=== PATIENT | female | born 1995 ===

== ENCOUNTER 2021-11-03 09:19 | Outpatient (CLI) | payer OTHER | END 2021-11-03 10:12 | disposition home or self-care (01) | LOC: PRENATAL 09:19 | PROVIDERS: ATTEND Obstetrics & Gynecology Maternal & Fetal Medicine | DX: O35.0XX0 Maternal care for (suspected) central nervous system malformation in fetus, not applicable or unspecified (principal); O35.3XX0 Maternal care for (suspected) damage to fetus from viral disease in mother, not applicable or unspecified ==

== ENCOUNTER 2021-12-23 12:00 | Inpatient (IN) | payer OTHER ==
[~2021-12-23] VITALS: Ht 177.8 cm; Wt 84.8 kg
[2022-01-08] MEDS ORDERED: PRENATAL TABLE1 EAC1 PO (03:42)
== END 2022-01-12 13:20 | disposition home or self-care (01) | DRG 807 ==
LOC: LDR 01-08 03:24 → OB/GYN 01-08 03:24
PROVIDERS: ADMIT Obstetrics & Gynecology; ATTEND Obstetrics & Gynecology
PROC: 4A1HXCZ Monitoring of Products of Conception, Cardiac Rate, External Approach (ICD-10-PCS; 2022-01-08)
PROC: 10E0XZZ Delivery of Products of Conception, External Approach (ICD-10-PCS; principal; 2022-01-10)
DX: O80 Encounter for full-term uncomplicated delivery (principal); Z37.0 Single live birth; Z3A.38 38 weeks gestation of pregnancy; Z20.822 Contact with and (suspected) exposure to COVID-19